=== PATIENT | female | born 1990 | race Caucasian/White ===

== ENCOUNTER 2022-05-18 06:17 | Inpatient (IN) | payer BC, MEDICARE, OTHER ==
[2022-05-18] MEDS ORDERED: ceFAZolin 2 GM in Premix Bag 1 BAG IV ONE (06:27)
[2022-05-18] MEDS: Lactated Ringers 1,000 ML IV SCH ×3 (06:58→23:52)
[2022-05-18] MEDS ORDERED: Scopolamine 1.5 MG Transdermal Patch TRDERM PRN (06:59)
[2022-05-18] MEDS ORDERED: Naloxone 0.4 MG/ML SDV IVPUSH PRN ×2 (07:03→16:41)
[2022-05-18] MEDS ORDERED: fentaNYL 50 MCG/ML SDV IVPUSH PRN (07:03)
[2022-05-18] MEDS ORDERED: Metoclopramide 10 MG/2 ML SDV IVPUSH PRN (07:03)
[2022-05-18] MEDS ORDERED: Ondansetron 4 MG/2 ML SDV IVPUSH PRN ×2 (07:03→16:41)
[2022-05-18] MEDS ORDERED: Morphine 2 MG/ML SYRINGE IVPUSH PRN (07:03)
[2022-05-18] MEDS ORDERED: HYDROmorphone 1 MG/ML Syringe IVPUSH PRN ×2 (07:03→18:15)
[2022-05-18] MEDS ORDERED: Albuterol 0.083% 2.5 MG/3 ML Neb Soln NEB PRN (07:03)
[2022-05-18] MEDS ORDERED: fentaNYL 250 MCG/5 ML SDV ONE (07:26)
[2022-05-18] MEDS ORDERED: Propofol 200 MG/20 ML SDV ONE ×3 (07:26→10:05)
[2022-05-18] MEDS ORDERED: Sugammadex Sodium 200 MG/2 ML VIAL ONE (07:27)
[2022-05-18] MEDS ORDERED: Ketorolac 30 MG/ML SDV ONE (07:27)
[2022-05-18] MEDS ORDERED: Dexamethasone 4 MG/ML 5 ML MDV ONE (07:27)
[2022-05-18] MEDS ORDERED: Ropivacaine 0.5% 5 MG/ML 30 ML SDV ONE (07:27)
[2022-05-18] MEDS ORDERED: Lidocaine 2% 5 ML SDV ONE (07:27)
[2022-05-18] MEDS ORDERED: Rocuronium Bromide 50 MG/5 ML Syringe ONE ×2 (07:27→09:20)
[2022-05-18] MEDS ORDERED: Dexmedetomidine 200 MCG/2 ML SDV ONE (07:27)
[2022-05-18] MEDS ORDERED: Ondansetron 4 MG/2 ML SDV ONE (07:27)
[2022-05-18] MEDS ORDERED: Fluorescein 5 ML Vial ONE (07:28)
[2022-05-18] MEDS ORDERED: Bupivacaine 0.25% 30 ML SDV ONE (07:29)
[2022-05-18] MEDS ORDERED: Methylene Blue 50 MG/10 ML Ampule ONE (07:29)
[2022-05-18] MEDS ORDERED: Magnesium Sulfate (4.06 MEQ/ML) 5 GM/10 ML SDV ONE (07:35)
[2022-05-18] MEDS ORDERED: Furosemide 40 MG/4 ML VIAL ONE (10:36)
[2022-05-18] MEDS ORDERED: HYDROmorphone 2 MG/ML Syringe ONE (10:48)
[2022-05-18] MEDS ORDERED: Promethazine 25 MG/ML SDV IM PRN (11:36)
[2022-05-18] MEDS ORDERED: Acetaminophen/oxyCODONE 325-5 MG Tab PO PRN (11:36)
[2022-05-18] MEDS ORDERED: Ketorolac 30 MG/ML SDV IVPUSH ONE (11:36)
[2022-05-18] MEDS ORDERED: HYDROmorphone 2 MG/ML Syringe IVPUSH PRN (11:36)
[2022-05-18] MEDS: Ketorolac 30 MG/ML SDV IVPUSH SCH ×2 (13:49→20:01)
[2022-05-18] MEDS: Acetaminophen/oxyCODONE 325-5 MG Tab PO PRN (15:39)
[2022-05-18] MEDS: Ondansetron 4 MG/2 ML SDV IVPUSH PRN (15:52)
[2022-05-18] MEDS ORDERED: diphenhydrAMINE 25 MG Cap PO PRN (16:41)
[2022-05-18] MEDS ORDERED: diphenhydrAMINE 50 MG/ML SDV IVPUSH PRN (16:41)
[2022-05-18] MEDS ORDERED: HYDROmorphone/Normal Saline 10 MG/50 ML PCA IV STA (16:41)
[2022-05-18] MEDS ORDERED: Belladonna Alkaloids/Opium 16.2-30 MG Supp RECTAL PRN (16:44)
[2022-05-18] MEDS ORDERED: NORMAL SALINE IV SCH (17:00)
[2022-05-18] MEDS ORDERED: HYDROMORPHONE IV SCH (17:00)
[2022-05-18] MEDS ORDERED: Acetaminophen 1,000 MG in Premix Bag 1 BAG IV ONE (18:15)
[2022-05-18] MEDS: Docusate Sodium 100 MG Cap PO SCH (20:02)
[2022-05-19] MEDS: Acetaminophen/oxyCODONE 325-5 MG Tab PO PRN (00:26)
[2022-05-19] MEDS: Ondansetron 4 MG/2 ML SDV IVPUSH PRN (01:23)
[2022-05-19] MEDS: Ketorolac 30 MG/ML SDV IVPUSH SCH ×3 (01:24→13:16)
[2022-05-19 06:31] LABS: CARBON DIOXIDE,CO2 24.8 mmol/L (21.0-32.0); POTASSIUM,K 3.9 mmol/L (3.5-5.1)
[2022-05-19] MEDS: Docusate Sodium 100 MG Cap PO SCH ×2 (08:40→20:25)
[2022-05-19] MEDS: Acetaminophen 500 MG Tab PO PRN ×2 (09:34→15:59)
[2022-05-19] MEDS: Ibuprofen 800 MG Tab PO SCH (18:06)
[2022-05-20] MEDS: Ibuprofen 800 MG Tab PO SCH ×3 (00:08→06:03)
[2022-05-20 08:23] VITALS: BP 98/57; PULSE 73
[2022-05-20] MEDS: Docusate Sodium 100 MG Cap PO SCH (08:23)
== END 2022-05-20 08:45 | disposition home or self-care (01) | DRG 513 ==
LOC: MW.SDS 06:17 → MW.MS 11:37
PROVIDERS: ADMIT Obstetrics & Gynecology; ATTEND Obstetrics & Gynecology
PROC: 0UB20ZZ Excision of Bilateral Ovaries, Open Approach (ICD-10-PCS; principal; 2022-05-18)
PROC: 0UT90ZZ Resection of Uterus, Open Approach (ICD-10-PCS; 2022-05-18)
PROC: 0DNN4ZZ Release Sigmoid Colon, Percutaneous Endoscopic Approach (ICD-10-PCS; 2022-05-18)
PROC: 0DNU4ZZ Release Omentum, Percutaneous Endoscopic Approach (ICD-10-PCS; 2022-05-18)
PROC: 0UB70ZZ Excision of Bilateral Fallopian Tubes, Open Approach (ICD-10-PCS; 2022-05-18)
DX: N80.30 Endometriosis of pelvic peritoneum, unspecified (principal); K66.0 Peritoneal adhesions (postprocedural) (postinfection); K21.9 Gastro-esophageal reflux disease without esophagitis; J30.9 Allergic rhinitis, unspecified; F41.9 Anxiety disorder, unspecified; F32.A Depression, unspecified; F43.10 Post-traumatic stress disorder, unspecified; F42.9 Obsessive-compulsive disorder, unspecified; Z53.31 Laparoscopic surgical procedure converted to open procedure; Z79.890 Hormone replacement therapy; Z79.899 Other long term (current) drug therapy; Z87.891 Personal history of nicotine dependence; Z88.8 Allergy status to other drugs, medicaments and biological substances; Z91.018 Allergy to other foods; Z86.010 Personal history of colon polyps; Z98.890 Other specified postprocedural states
CPT/HCPCS: 36415; 80048; 85025; 86850; 86900; 86901; A9270-GY; J0131; J1100; J1170; J1885; J1940; J2405; J2704; J2795; J3010; J3475; J3490; J7120